=== PATIENT | female | born 1945 | race Hispanic/Latino ===

== ENCOUNTER 2019-02-08 10:54 | Day surgery (SDC) | payer MEDICARE, OTHER ==
[~2019-02-08 10:54] MED LIST: IOPIDINE ONE; MYDRIACYL ONE; NEOFRIN ONE
[2019-02-08] MEDS ORDERED: NEOFRIN OS ONE (11:07)
[2019-02-08] MEDS ORDERED: IOPIDINE OS ONE (11:07)
[2019-02-08] MEDS ORDERED: MYDRIACYL OS ONE (11:08)
[2019-02-08 12:29] VITALS: BP 128/76
== END 2019-02-08 10:55 | disposition home or self-care (01) ==
LOC: OR 10:54
PROVIDERS: ATTEND Specialist
DX: H26.492 Other secondary cataract, left eye (principal); G43.909 Migraine, unspecified, not intractable, without status migrainosus; E78.00 Pure hypercholesterolemia, unspecified; I10 Essential (primary) hypertension; J43.9 Emphysema, unspecified; G47.30 Sleep apnea, unspecified; M19.90 Unspecified osteoarthritis, unspecified site; Z85.89 Personal history of malignant neoplasm of other organs and systems; Z79.82 Long term (current) use of aspirin; Z79.899 Other long term (current) drug therapy; Z87.891 Personal history of nicotine dependence; Z98.41 Cataract extraction status, right eye; Z98.42 Cataract extraction status, left eye; Z98.51 Tubal ligation status; Z90.710 Acquired absence of both cervix and uterus; Z98.890 Other specified postprocedural states; Z72.89 Other problems related to lifestyle; Z86.73 Personal history of transient ischemic attack (TIA), and cerebral infarction without residual deficits